=== PATIENT | female | born 1965 | race Caucasian/White ===

== ENCOUNTER 2017-01-04 10:54 | Emergency (ER) | payer OTHER ==
[~2017-01-04] VITALS: Ht 147.3 cm; Wt 90.3 kg
[2017-01-04 11:12] VITALS: BP 178/68
== END 2017-01-04 11:34 | disposition home or self-care (01) ==
LOC: ER 10:54
DX: S00.212A Abrasion of left eyelid and periocular area, initial encounter (principal); W18.39XA Other fall on same level, initial encounter; Y93.89 Activity, other specified; Y92.89 Other specified places as the place of occurrence of the external cause; Y99.8 Other external cause status